=== PATIENT | female | born 1995 | race Two or more races ===

== ENCOUNTER 2023-02-08 15:55 | Emergency (ER) | payer OTHER ==
[~2023-02-08] VITALS: Ht 162.6 cm; Wt 70.5 kg
[2023-02-08 18:17] VITALS: BP 120/72; TEMP 97.8; O2SAT 100
== END 2023-02-08 18:18 | disposition home or self-care (01) ==
LOC: M ED 15:55
DX: F32.A Depression, unspecified (principal)

== ENCOUNTER → 2023-02-12 | Outpatient (REF) | LOC: M PLAIMG 09:11 | PROVIDERS: ATTEND Internal Medicine | DX: R06.02 Shortness of breath (principal) ==

== ENCOUNTER → 2023-04-16 | Outpatient (CLI) | payer OTHER | LOC: M WHC 12:47 | PROVIDERS: ATTEND Physician Assistant | DX: Z53.9 Procedure and treatment not carried out, unspecified reason (principal) ==

== ENCOUNTER → 2023-07-25 | Outpatient (CLI) | payer OTHER | LOC: M WHC 14:10 | PROVIDERS: ATTEND Physician Assistant | DX: N64.4 Mastodynia (principal) ==

== ENCOUNTER 2023-09-07 17:31 | Emergency (ER) | payer OTHER ==
[~2023-09-07] VITALS: Ht 160 cm; Wt 67.3 kg
[2023-09-07 19:00] LABS: HEMATOCRIT 36.9 % (36.0-47.0); HEMOGLOBIN 12.9 g/dl (12.0-15.5); MEAN CORPUSCULAR HEMOGLOBIN 29.7 pg (27.0-33.0); PLATELET COUNT, AUTOMATED 240 10^3/uL (150-450); RED BLOOD COUNT 4.34 10^6/uL (4.00-5.40); WHITE BLOOD COUNT 3.7 10^3/uL (4.0-10.0)
[2023-09-07 19:17] LABS: HCG, SERUM QUALITATIVE NEGATIVE (NEGATIVE)
[2023-09-07 19:18] LABS: LIPASE 40 U/L (12-53)
[2023-09-07 19:20] LABS: ALBUMIN 3.6 G/DL (3.2-5.2); ALKALINE PHOSPHATASE 49 U/L (46-116); ALT/SGPT 17 U/L (7.0-40); AST/SGOT 16 U/L (<34); BILIRUBIN,DIRECT 0.1 MG/DL (<0.4); BILIRUBIN,TOTAL 0.3 MG/DL (0.3-1.2); BLOOD UREA NITROGEN 9 MG/DL (9-23); CALCIUM LEVEL 8.8 MG/DL (8.5-10.1); CARBON DIOXIDE LEVEL 26 MMOL/L (20-31); CHLORIDE LEVEL 104 MMOL/L (98-107); GLOMERULAR FILTRATION RATE > 60.0 (>60); GLUCOSE, FASTING 83 MG/DL (60-100); POTASSIUM SERUM 4.1 MMOL/L (3.5-5.1); SODIUM LEVEL 135 MMOL/L (136-145); TOTAL PROTEIN 6.9 G/DL (5.7-8.2)
[2023-09-07 19:25] LABS: RSV AMPLIFICATION NEGATIVE (NEGATIVE)
[2023-09-07] MEDS: NS 1,000 ML IV ONE (19:28)
[2023-09-07] MEDS: ONDANSETRON 4MG 2ML VIAL IV ONE (19:28)
[2023-09-07] MEDS: PANTOPRAZOLE 40MG VIAL IV ONE (19:28)
[2023-09-07 19:38] LABS: ATYPICAL LYMPH 4 % (0-5); EOSINOPHILS 1 % (0-3); LYMPHOCYTES 29 % (16-44); MONOCYTES 4 % (0-5); NEUTROPHILS 62 % (28-66)
[2023-09-07 19:39] LABS: PLATELET ESTIMATE NORMAL (NORMAL)
[2023-09-07 20:11] VITALS: BP 108/69; TEMP 97.7; O2SAT 100
== END 2023-09-07 20:12 | disposition home or self-care (01) ==
LOC: M ED 17:31
DX: A09 Infectious gastroenteritis and colitis, unspecified (principal)
CPT/HCPCS: 74021; 80047; 80048; 80076; 81001; 83690; 84702; 84703; 85025; 87631; 96361; 96374; 96375; 99284; C9113; J2405

== ENCOUNTER → 2023-09-26 | Outpatient (CLI) | payer OTHER | LOC: M LAB 16:46 | PROVIDERS: ATTEND Physician Assistant | DX: Z34.90 Encounter for supervision of normal pregnancy, unspecified, unspecified trimester (principal) ==

== ENCOUNTER 2023-10-30 14:02 | Emergency (ER) | payer OTHER ==
[~2023-10-30] VITALS: Ht 157.5 cm; Wt 62.6 kg
[2023-10-30 14:45] LABS: BASO # 0.1 10^3/uL (0.0-0.2); BASO % 0.8 % (0.0-1.0); EOS # 0.1 10^3/uL (0.0-0.5); EOS % 0.8 % (0.0-3.0); HEMOGLOBIN 11.9 g/dl (12.0-15.5); LYMPH # 1.6 10^3/uL (1.5-5.0); LYMPH % 26.3 % (24.0-44.0); MEAN CORPUSCULAR HEMOGLOBIN 30.2 pg (27.0-33.0); MEAN CORPUSCULAR HGB CONC 36.1 g/dl (32.0-36.5); MEAN CORPUSCULAR VOLUME 83.8 fl (80.0-96.0); MONO # 0.4 10^3/uL (0.0-0.8); NEUTROPHILS # 3.9 10^3/uL (1.5-8.5); NEUTROPHILS % 64.8 % (36.0-66.0); PLATELET COUNT, AUTOMATED 284 10^3/uL (150-450); RED BLOOD COUNT 3.94 10^6/uL (4.00-5.40)
[2023-10-30 15:18] LABS: BLOOD UREA NITROGEN 6 MG/DL (9-23); CARBON DIOXIDE LEVEL 25 MMOL/L (20-31); CHLORIDE LEVEL 101 MMOL/L (98-107); GLOMERULAR FILTRATION RATE > 60.0 (>60); GLUCOSE, FASTING 81 MG/DL (60-100); POTASSIUM SERUM 3.9 MMOL/L (3.5-5.1); SODIUM LEVEL 133 MMOL/L (136-145)
[2023-10-30 16:25] LABS: HCG, SERUM QUANTITATIVE 426001.5 MIU/ML (<4.2)
[2023-10-30] MEDS: NS 1,000 ML IV ONE (17:31)
[2023-10-30] MEDS: ONDANSETRON 4MG 2ML VIAL IV ONE (17:31)
[2023-10-30 18:48] VITALS: BP 95/73; TEMP 97.9; O2SAT 99
[2023-10-30] MEDS ORDERED: ONDA4TAB6 PO (19:13)
[2023-10-31 16:00] LABS: CALCIUM LEVEL 9.4 MG/DL (8.5-10.1)
== END 2023-10-30 19:37 | disposition home or self-care (01) ==
LOC: M ED 14:02
DX: O21.9 Vomiting of pregnancy, unspecified (principal); Z3A.10 10 weeks gestation of pregnancy; Z79.83 Long term (current) use of bisphosphonates
CPT/HCPCS: 80048; 81001; 84702; 85025; 87086; 96361; 96374; 99284; J2405